=== PATIENT | male | born 1995 | race Caucasian/White ===

== ENCOUNTER 2019-09-22 19:45 | Inpatient (IN) | payer MEDICAID, SELFPAY ==
[~2019-09-22] VITALS: Ht 162.6 cm; Wt 67.6 kg
[2019-09-22 19:51] VITALS: BP 137/80
--- NOTE | 2019-09-22 20:05 | NUR ---
PT AMBULATED TO BED 6 WITH STEADY GAIT.
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
--- NOTE | 2019-09-22 20:10 | NUR ---
PT CURRENTLY NOT ON A HOLD BUT IS VOLUNTARILY CHECKING HIMSELF IN FOR SI. 1:1 SITTER AT BEDSIDE. SUICIDAL PRECAUTIONS IN PLACE.
--- NOTE | 2019-09-22 20:10 | NUR ---
REFER TO BEHAVIORAL HEALTH OBSERVATION RECORD FOR Q15MIN OBSERVATIONS OF PT.
--- NOTE | 2019-09-22 20:12 | NUR ---
PT PROVIDED UA VIA URINAL. UA GIVEN TO CLAY BURNER. CLAY BURNER AT BEDSIDE DRAWING LABS.
[2019-09-22 20:22] LABS: BASOPHILS # (AUTO) 0.1 K/uL (0.00-0.22); BASOPHILS % (AUTO) 1.1 % (0.0-2.0); EOSINOPHILS # (AUTO) 0.2 K/uL (0-0.4); EOSINOPHILS % (AUTO) 2.1 % (0.0-4.0); HEMATOCRIT 45.8 % (36-52); HEMOGLOBIN 15.8 g/dL (12.0-18.0); LYMPHOCYTES # (AUTO) 2.5 K/uL (2.0-11.5); LYMPHOCYTES % (AUTO) 34.2 % (20.5-51.1); MEAN CORPUSCULAR HEMOGLOBIN 32 pg (27-31); MEAN CORPUSCULAR HGB CONC 35 g/dL (33-37); MEAN CORPUSCULAR VOLUME 92.5 fL (80-94); MONOCYTES # (AUTO) 0.8 K/uL (0.8-1.0); MONOCYTES % (AUTO) 10.3 % (1.7-9.3); NEUTROPHILS # (AUTO) 3.9 K/uL (1.8-7.7); NEUTROPHILS % (AUTO) 52.3 % (42.2-75.2); PLATELET COUNT (AUTO) 194 K/uL (140-450); RED BLOOD CELL COUNT(AUTO) 4.95 MIL/uL (4.20-6.10); RED CELL DISTRIBUTION WIDTH 14.2 % (11.6-13.7); WHITE BLOOD COUNT (AUTO) 7.4 K/uL (4.8-10.8)
--- NOTE | 2019-09-22 20:24 | NUR ---
EKG BEING PERFORMED AT BEDSIDE.
[2019-09-22 20:48] LABS: ALBUMIN 4.4 g/dL (3.4-5.0); ANION GAP 13.8 (8-16); ASPARTATE AMINOTRANSFERASE 65 U/L (15-37); CARBON DIOXIDE 25.9 mmol/L (21-32); CHLORIDE 104 mmol/L (98-107); CREATININE 0.8 mg/dL (0.6-1.3); GFR ARICAN-AMERICAN 151 mL/min (>90); GLUCOSE 91 mg/dL (74-106); POTASSIUM 3.7 mmol/L (3.5-5.1); SODIUM SERUM 140 mmol/L (136-145); UREA NITROGEN, BLOOD 7 mg/dL (7-18)
[2019-09-22 20:52] LABS: ACETAMINOPHEN < 0.5 ug/ml (10-30); SALICYLATE < 2.8 mg/dL (2.8-20.0)
--- NOTE | 2019-09-22 21:00 | NUR ---
TELEPSYCH REQUEST INITIATED - CONNECT ID [id number]
[2019-09-22 21:02] LABS: BARBITURATE, URINE NEGATIVE ng/ml (NEG <=200); BENZODIAZEPINE, URINE NEGATIVE ng/mL (NEG <=200); CANNABINOID, URINE POSITIVE ng/mL (NEG <=50); COCAINE, URINE NEGATIVE ng/mL (NEG <=300); OPIATE, URINE NEGATIVE ng/mL (NEG <=2000); PHENCYCLIDINE SCREEN,URINE NEGATIVE ng/mL (NEG <=25)
--- NOTE | 2019-09-22 21:03 | NUR ---
TELEPSYCH SET UP AT PT BEDSIDE.
--- NOTE | 2019-09-22 21:03 | NUR ---
CALLED [place] [employer] AND SPOKE TO ANGELO. PD WILL COME TO EVALUATE PT TO BE PLACED ON A HOLD AT SOON POSSIBLE.
--- NOTE | 2019-09-22 21:17 | NUR ---
PT RESTING IN BED EYES CLOSED. RESPIRATIONS ARE EVEN AND UNLABORED SKIN IS WARM AND DRY TO TOUCH.
--- NOTE | 2019-09-22 21:53 | NUR ---
[place] [employer] AT BEDSIDE.
--- NOTE | 2019-09-22 22:12 | NUR ---
[place] PD at the pt bedside and pt was place on 5150 hold. PORTER reilly.
--- NOTE | 2019-09-22 23:15 | NUR ---
PTS VSS. PT ASLEEP IN BED, RR EVEN AND UNLABORED.
--- NOTE | 2019-09-22 23:32 | NUR ---
[facility] s/w Nii, ruth beds for tonight. Call in the AM for discharges [facility], no answer. Will call again. No voicemail box
--- NOTE | 2019-09-23 00:17 | NUR ---
PT RESTING IN BED EYES CLOSED. RESPONSIVE TO VERBAL STIMULI. RESPIRATIONS ARE EVEN AND UNLABORED. SKIN IS WARM AND DRY TO TOUCH. 1:[address] BEDSIDE. SI PRECAUTIONS ARE IN PLACE.
--- NOTE | 2019-09-23 00:30 | NUR ---
PT ASLEEP ON BED AND AROUSABL WITH A SITTER AT THE BEDSIDE. PT PERSONAL BELONING HANDLED TO THE HOUSE SECURITY.
--- NOTE | 2019-09-23 01:21 | NUR ---
PT GIVEN BLANKET AND ON CONTINIOUS 1;1 WATCH WITH THE SITTER AT THE BEDSIDE. PT IS CALM AND COOPERATIVE.
--- NOTE | 2019-09-23 02:19 | NUR ---
PT NO COMPLAINS NOTED. PT FOR POSSIBLE ADMISSION TO MED-SURG PER DR SWIFT
[2019-09-23] MEDS ORDERED: ACETAMINOPHEN 325 MG TAB PO PRN (02:35)
[2019-09-23] MEDS ORDERED: ONDANSETRON 4 MG/2 ML VIAL IVP PRN (02:35)
--- NOTE | 2019-09-23 02:44 | NUR ---
XRAY AT BEDSIDE.
--- NOTE | 2019-09-23 02:58 | NUR ---
Called the following facilities: [facility], still no answer [facility] s/w Z[facility] no beds. At full capacity [facility] s/w [facility], no beds. On saturation [facility], no beds, packet faxed for wait list [facility], no beds, packet faxed for wait list
[2019-09-23 03:04] LABS: PROTHROMBIN TIME 9.4 secs (10.8-13.4)
[2019-09-23 03:05] LABS: CHOL/HDL RATIO 1.9 (1-4.5); MAGNESIUM 1.9 mg/dL (1.8-2.4); PHOSPHORUS 4.4 mg/dL (2.5-4.9); THYROID STIMULATING HORMONE 1.34 uIU/mL (0.34-3.74)
--- NOTE | 2019-09-23 03:09 | NUR ---
IV PLACED IN L HAND 20 G. IV PATENT. NO PAIN , REDNESS, OR SWELLING NOTED.
--- NOTE | 2019-09-23 03:22 | NUR ---
[facility] no beds [facility] no beds, call back after 11am [facility] no beds
--- NOTE | 2019-09-23 03:27 | NUR ---
AT BEDSIDE TALKING WITH PT
--- NOTE | 2019-09-23 03:50 | NUR ---
PT TAKEN TO MS VIA W/C. PT ABLE TO AMBULATE TO W/C WITH STEADY GAIT. CORRECTION OFFICER HEAD ASSISTING RN.
--- NOTE | 2019-09-23 03:52 | NUR ---
Patient will be admitted to care of . Admited to [facility]. Will go to room 109B. Belongings list completed AND PT BELONGINGS WITH SECURITY. Report GIVEN TO PORTER SALAZAR, WHO ASSUMED CARE OF PT AT THIS TIME.
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
[2019-09-23] MEDS ORDERED: HALOPERIDOL IM 5 MG/ML VIAL IM PRN (03:55)
[2019-09-23] MEDS ORDERED: LORazepam 2 MG/ML VIAL IM/IVP PRN (03:55)
[2019-09-23 04:00] VITALS: BP 120/92
--- NOTE | 2019-09-23 04:10 | NUR ---
PT SITTING COMFORTABLY IN BED EATING SANDWICH. 1:1 SITTER. WILL CONTINUE TO MONITOR.
--- NOTE | 2019-09-23 04:20 | NUR ---
[facility] s/w Nii no beds, on saturation [facility] s/w Zeb no beds
--- NOTE | 2019-09-23 06:00 | NUR ---
PATIENT LAYING COMFORTABLY IN BED WITH EYES CLOSED. CHEST RISE AND FALL NOTED. NO S/S OF DISTRESS. 1:1 SITTER. WILL CONTINUE TO MONITOR.
--- NOTE | 2019-09-23 07:10 | NUR ---
GAVE BEDSIDE REPORT TO DAY RN. PT ENDORSED IN STABLE CONDITION.
--- NOTE | 2019-09-23 07:11 | NUR ---
REPORT GIVEN FROM NIGHT NURSE. PLANS OF CARE DISCUSSED. PATIENT ASLEEP, RESPIRATION EVEN AND UNLABORED. EASILY AROUSABLE BY NAME OR TOUCH. PATIENT ON 1 TO 1 SITTER.
[2019-09-23 07:14] LABS: APPEARANCE,URINE SL CLOUDY (CLEAR); BILIRUBIN,URINE 1+ (NEGATIVE); BLOOD, URINE NEGATIVE (NEGATIVE); COLOR,URINE YELLOW (YELLOW); LEUKOCYTE ESTERASE ,URINE NEGATIVE (NEGATIVE); NITRITE, URINE NEGATIVE (NEGATIVE); PH,URINE 6.5 (5.0-9.0); UGLUCOSE NEGATIVE (NEGATIVE)
--- NOTE | 2019-09-23 07:18 | NUR ---
Received report from manufacturing shift supervisor. There are no beds at this time. [facility] still working on placement.
--- NOTE | 2019-09-23 09:04 | NUR ---
PATIENT HAS BEEN SCREENED AND CATEGORIZED LOW NUTRITION RISK. PATIENT WILL BE SEEN WITHIN 7 DAYS OF ADMISSION. 09/29/[address]
[2019-09-23] MEDS: risperiDONE 1 MG TAB PO SCH ×2 (09:07→20:24)
[2019-09-23] MEDS: diphenhydrAMINE 50 MG CAP PO SCH ×2 (09:07→20:24)
--- NOTE | 2019-09-23 09:15 | NUR ---
PATIENT ASLEEP, ABLE TO WAKE BY NAME. 1:1 SITTER AT BEDSIDE. PATIENT DENIES HEARING VOICES AND SUICIDAL THOUGHTS AT THIS TIME.
--- NOTE | 2019-09-23 10:53 | NUR ---
ALGOLOGIST NOTE: Basic Screen: Yes High Risk DC Screen [place]: CESILIA Dwyer Tel: N/A Relationship: GRANDFATHER Pre-Admission Living Arrangements: Other Prior ADL Independent Current Home Health Name/Tel: N/A Current DME/02 Name/Tel: N/A Current Hospice Name/Tel: N/A Current Dialysis Name/Tel: N/A Healthcare Decision Maker: Patient Advance Directive No Physician Orders for Life Sustaining Treatment Form No Patient/Family Have Educational Needs No Information Taught: Community Resources Person Taught: Patient Teaching Tools: Community Resources Computer Generated Print Verbal Factors Affecting Learning: None Participation Level: Active Evaluation: Verbalizes Understanding Needs Additional Education: No Discipline: Case Mgt/Social Svcs Tentative Discharge Plan/Destination: Other Other: PSYCHIATRIC FACILITY Will require assistance post discharge: No Referred to Statistical Reporting Analyst: No Tentative Discharge Plan Summary: PATIENT IS A 24-YEAR-OLD MALE ADMITTED FOR 5150. PATIENT HAS PMHX OF BIPOLAR DISORDER, SCHIZOPHRENIA, AND MEDICATION-NONCOMPLIANCE. PATIENT REPORTED BEING HOMELESS. SW MET WITH PATIENT AT BEDSIDE TO VERIFY DEMOGRAPHICS. PATIENT'S AFFECT WAS GUARDED AND RESISTANT TO SPEAK. PATIENT STATED HE WAS HOMELESS FOR 7 YEARS AND DENIES CURRENT S/I AND H/I. PATIENT STATED THAT HE WAS EXPERIENCING S/I AND H/I PRIOR TO HOSPITALIZATION. PATIENT STATED HE SOMETIMES HAS COMMANDING AUDITORY HALLUCINATIONS BUT IS NOT CURRENTLY EXPERIENCING THEM. PATIENT STATED THAT HE DOES NOT EXPERIENCE VISUAL HALLUCINATIONS. PATIENT STATED THAT HE DRINKS AND SMOKES MARIJUANA BUT REFUSED TO STATE FREQUENCY. PATIENT REFUSED MENTAL HEALTH RESOURCES BUT ACCEPTED HOMELESS RESOURCES AND SUBSTANCE ABUSE RESOURCES. PATIENT REPORTED THAT HE IS SUPPOSED TO TAKE RESPIRADAL, REMERON, AND BENEDRYL BUT DOES NOT. [facility] WAS SENT CLINICAL PACKET 09/23/2019. TENTATIVE DISCHARGE PLAN IS FOR PATIENT TO BE DISCHARGED TO PSYCHIATRIC FACILITY PENDING PSYCHIATRIC CONSULT. SW WILL REMAIN AVAILABLE IF ISSUES ARISE. Signature: CALLY LOUIS Date: September 23, 2019 Time: 10:52
--- NOTE | 2019-09-23 11:02 | NUR ---
PATIENT IN BED, AWAKE, RESTING QUIETLY. 1 TO 1 SITTER AT BEDSIDE FOR CONTINUOUS MONITORING.
--- NOTE | 2019-09-23 12:00 | NUR ---
DISCHARGE PLANNING: THIS IS A 24 Y/O MALE PATIENT FROM HOME, WHO CAME IN DUE TO HEARING VOICES X2DAYS. PAST MEDICAL HISTORY INCLUDE BIPOLAR, SCHIZOPHRENIA AND MEDICAL NON COMPLIANCE. INITIAL DIAGNOSIS OF 5150 HOLD. CURRENT LABS WNL. UDS SHOWED (+) FOR CANNABINOIDS AND SERUM ALCOHOL 38. PSYCHE CONSULT IN PLACE. DC PLAN PENDING ON PSYCHE'S RECOMMENDATIONS. Addendum: 09/23/19 at 1552 by Brianna Garcia CM SPOKE TO PORTER BEAUCHAMP ABOUT COVID TESTING FOR PATIENT, SHE STATED THAT SHE ASKED DR. CAZARES TO PLACE THE ORDER. I THEN SPOKE TO DR. CAZARES ABOUT TO FOLLOW UP HE SAID THAT HE WILL PERFORM THE COVID TESTING ON PATIENT.
--- NOTE | 2019-09-23 12:56 | NUR ---
Received call from [facility]. They are willing to accept the patient but they need a COVID test first. I have notified the bedside nurse as well as left a voicemail for the case worker Shameka.
--- NOTE | 2019-09-23 13:30 | NUR ---
DR. ROSEN MADE AWARE IN REGARDS TO RECEIVING PHONE CALL FROM [facility] STATING THAT [facility] IS WILLING TO ACCEPT PATIENT IF PATIENT IS TESTED FOR COVID.
--- NOTE | 2019-09-23 13:59 | NUR ---
PATIENT IN BED, ASLEEP, EASILY AROUSABLE BY NAME, RESTING QUIETLY. 1 TO 1 SITTER AT BEDSIDE FOR CONTINUOUS MONITORING.
[2019-09-23 16:00] VITALS: BP 122/63
[2019-09-23] MEDS ORDERED: LORazepam 2 MG/ML VIAL IVP PRN (16:10)
[2019-09-23] MEDS: MULTIVITAMIN-12 10 ML, THIAMINE 100 MG, FOLIC ACID 1 MG, MAGNESIUM SULFATE 50% 2,000 MG... IV SCH ×5 (16:53)
--- NOTE | 2019-09-23 17:00 | NUR ---
PATIENT AWAKE AND VERBALLY RESPONSIVE. DENIES ANY SI OR AH AT THIS TIME. 1 TO 1 SITTER AT BEDSIDE.
--- NOTE | 2019-09-23 18:55 | NUR ---
PATIENT IN STABLE CONDITION. 1 TO 1 SITTER AT BEDSIDE. WILL ENDORSE TO NIGHT NURSE FOR CONTINUITY OF CARE.
--- NOTE | 2019-09-23 19:24 | NUR ---
RECEIVED BEDSIDE REPORT FROM DAY SHIFT NURSEROWDY. PT HAVE NO S/S OF SOB. BREATHING EVEN AND UNLABORED WITH ROOM AIR. IV SITE ON LH 20G. PATENT, INTACT AND ASYMPTOMATIC. SKIN INTACT, WARM AND DRY TO TOUCH. BED IN LOW POSITION. 1:1 SITTER.
--- NOTE | 2019-09-23 20:26 | NUR ---
GIVEN BENADRYL, REMERON, AND RISPERDAL MD ORDERED. PT TOLERATED WELL.
[2019-09-23] MEDS ORDERED: MIRTAZAPINE 15 MG TAB PO SCH (21:00)
--- NOTE | 2019-09-23 22:26 | NUR ---
IV PUMP BEEPING FOR PRESSURE. FLUSHED IV SITE. PT SLEEPING IN BED COMFORTABLY.
[2019-09-24] VITALS: BP 120/61
--- NOTE | 2019-09-24 00:01 | NUR ---
VS CHECKED, WITHIN PT'S BASELINE. WILL CONTINUE TO MONITOR.
--- NOTE | 2019-09-24 02:33 | NUR ---
Monitoring notes and aware awaiting for laboratory test Covid 19, that is pending
--- NOTE | 2019-09-24 02:37 | NUR ---
PT SLEEPING IN BED COMFORTABLY. NO ACUTE DISTRESS NOTED.
--- NOTE | 2019-09-24 04:12 | NUR ---
PT SLEEPING IN BED COMFORTABLY. NO ACUTE DISTRESS NOTED.
--- NOTE | 2019-09-24 06:21 | NUR ---
PT SLEEPING IN BED COMFORTABLY. NO ACUTE DISTRESS NOTED.
--- NOTE | 2019-09-24 06:55 | NUR ---
PT IN STABLE CONDITION. WILL ENDORSE PT TO DAY SHIFT NURSE FOR CONTINUOUS CARE.
--- NOTE | 2019-09-24 07:00 | NUR ---
RECEIVED REPORT FROM HISTORICAL INTERPRETER NURSE. PT IS CURRENTLY ASLEEP, ALERT AND LAYING IN BED WITH NO SIGNS OF DISTRESS NOTED, SITTER IS AT BEDSIDE. SKIN IS INTACT WITH IV ASYMPTOMATIC, PATENT, AND SALINE LOCKED. RESPIRATIONS ARE EVEN AND UNLABORED ON ROOM AIR WITH VISIBLE CHEST RISE AND FALL. PT DOES NOT COMPLAIN OF PAIN AT THIS TIME. VITAL SIGNS ARE STABLE. BED IS IN LOW POSITION, SAFETY MEASURES IN PLACE, CALL LIGHT WITHIN REACH AND WILL CONTINUE TO MONITOR.
--- NOTE | 2019-09-24 07:51 | NUR ---
Received report from maintenance technician 2nd shift. [facility] still working on placement.
[2019-09-24 08:03] LABS: BASOPHILS % (AUTO) 0.9 % (0.0-2.0); EOSINOPHILS # (AUTO) 0.2 K/uL (0-0.4); EOSINOPHILS % (AUTO) 4.2 % (0.0-4.0); HEMATOCRIT 45.5 % (36-52); HEMOGLOBIN 15.1 g/dL (12.0-18.0); LYMPHOCYTES % (AUTO) 35.3 % (20.5-51.1); MEAN CORPUSCULAR HEMOGLOBIN 32 pg (27-31); MEAN CORPUSCULAR HGB CONC 33 g/dL (33-37); MEAN CORPUSCULAR VOLUME 95.4 fL (80-94); MONOCYTES # (AUTO) 0.8 K/uL (0.8-1.0); MONOCYTES % (AUTO) 13.4 % (1.7-9.3); NEUTROPHILS # (AUTO) 2.7 K/uL (1.8-7.7); NEUTROPHILS % (AUTO) 46.2 % (42.2-75.2); PLATELET COUNT (AUTO) 174 K/uL (140-450); RED BLOOD CELL COUNT(AUTO) 4.77 MIL/uL (4.20-6.10); RED CELL DISTRIBUTION WIDTH 14.4 % (11.6-13.7); WHITE BLOOD COUNT (AUTO) 5.8 K/uL (4.8-10.8)
[2019-09-24 08:20] LABS: ANION GAP 10.6 (8-16); CARBON DIOXIDE 30.3 mmol/L (21-32); CREATININE 0.8 mg/dL (0.6-1.3); POTASSIUM 3.9 mmol/L (3.5-5.1)
[2019-09-24 08:21] LABS: MAGNESIUM 1.9 mg/dL (1.8-2.4); PHOSPHORUS 3.5 mg/dL (2.5-4.9)
[2019-09-24] MEDS: diphenhydrAMINE 50 MG CAP PO SCH (09:29)
[2019-09-24] MEDS: risperiDONE 1 MG TAB PO SCH (09:29)
--- NOTE | 2019-09-24 09:37 | NUR ---
ADMINISTERED MEDICATIONS PER ORDER AND TOLERATED WELL. PT DOES NOT COMPLAIN OF PAIN AT THIS TIME. PT DOES WANT TO TAKE A SHOWER BEFORE RECEIVING BANANA BAG. WILL FOLLOW UP FOR ORDER FROM PHYSICIAN. SAFETY MEASURES IN PLACE, CALL LIGHT WITHIN REACH AND WILL CONTINUE TO MONITOR.
[2019-09-24] MEDS: MULTIVITAMIN-12 10 ML, THIAMINE 100 MG, FOLIC ACID 1 MG, MAGNESIUM SULFATE 50% 2,000 MG... IV SCH ×5 (11:45)
--- NOTE | 2019-09-24 11:50 | NUR ---
IV IN LEFT HAND WAS REMOVED AND A NEW 22G IV WAS INSERTED INTO FOREARM. PT DOES NOT COMPLAIN OF PAIN AT THIS TIME. PT NO LONGER WANTS TO SHOWER AND IS OKAY WITH RECEIVING IVF. SAFETY MEASURES IN PLACE AND WILL CONTINUE TO MONITOR.
--- NOTE | 2019-09-24 13:50 | NUR ---
PT IS CURRENTLY SLEEPING WITH NO SIGNS OF DISTRESS NOTED. SAFETY MEASURES ARE IN PLACE, SITTER IS AT BEDSIDE AND BED IS IN LOW POSITION. WILL CONTINUE TO MONITOR.
--- NOTE | 2019-09-24 14:57 | NUR ---
DANIEL FROM [facility] SAID PATIENT HAS BED BUT NEEDS THE RESULT OF COVID FIRST.
--- NOTE | 2019-09-24 15:59 | NUR ---
PT IS CURRENTLY AWAKE AND IN BED WITH NO SIGNS OF DISTRESS. PT STATES THAT HE IS HUNGRY AND WANTS TO HAVE A SANDWICH. NO OTHER COMPLAINTS OR REQUESTS AT THIS TIME. SAFETY MEASURES IN PLACE AND WILL CONTINUE TO MONITOR.
[2019-09-24 16:00] VITALS: BP 114/69
--- NOTE | 2019-09-24 16:25 | NUR ---
Packet faxed to: [facility]
--- NOTE | 2019-09-24 17:50 | NUR ---
PT IS CURRENTLY AWAKE AND WALKING AROUND ROOM WHISTLING. PT SHOWS NO SIGNS OF DISTRESS OR COMPLAINTS OF PAIN. SAFETY MEASURES IN PLACE AND WILL CONTINUE TO MONITOR.
--- NOTE | 2019-09-24 18:37 | NUR ---
PT IS CURRENTLY ALERT,AWAKE AND LAYING IN BED WITH NO SIGNS OF DISTRESS NOTED OR COMPLAINTS OF PAIN. SAFETY MEASURES IN PLACE AND SITTER AT BEDSIDE. PATIENT IS IN STABLE CONDITION, WILL ENDORSE TO SHEET METAL PRODUCTION WORKER NURSE FOR CONTINUITY OF CARE.
[2019-09-24] MEDS ORDERED: MIRT15TA4 PO (18:43)
[2019-09-24] MEDS ORDERED: BEN50 PO (18:43)
[2019-09-24] MEDS ORDERED: RIS1 PO (18:43)
[2019-09-24 18:53] VITALS: BP 114/69
--- NOTE | 2019-09-24 19:05 | NUR ---
RECEIVED ENDORSEMENT FROM AM SHIFT RN THAT PATIENT HAS A D/C ORDER. PATIENT IS NOT IN ANY ACUTE DISTRESS. NO SOB NOTED. DENIES PAIN. WILL CONTINUE TO MONITOR AND PREPARE D/C INSTRUCTIONS.
--- NOTE | 2019-09-24 20:15 | NUR ---
DISCHARGED INSTRUCTIONS EXPLAINED AND GIVEN TO PATIENT. PERSONAL BELONGINGS RETURNED TO PATIENT. SIGNED D/C FORMS. PATIENT VERBALIZED UNDERSTANDING. PATIENT IS IN STABLE CONDITION. NO SOB. DENIES PAIN. WILL ARRANGE TRANSPORT.
--- NOTE | 2019-09-24 20:45 | NUR ---
ACCOMPANIED PATIENT IN FRONT OF THE HOSPITAL TO THE VAN/CAR PASS ARRANGED BY HOSPITAL. PATIENT IS AMBULATORY. PATIENT IS THANKFUL. DISCHARGED AT THIS TIME.
== END 2019-09-24 20:45 | disposition home or self-care (01) | DRG 750 ==
LOC: MED 19:45 → EEVIPCON 09-23 02:34 → MTU 09-23 02:34
PROVIDERS: ADMIT General Practice; ATTEND General Practice
DX: F25.0 Schizoaffective disorder, bipolar type (principal); R74.0 Nonspecific elevation of levels of transaminase and lactic acid dehydrogenase [LDH]; F10.239 Alcohol dependence with withdrawal, unspecified; Z03.818 Encounter for observation for suspected exposure to other biological agents ruled out; F12.10 Cannabis abuse, uncomplicated
CPT/HCPCS: 36415; 71045; 76705; 80048; 80053; 80305; 81003; 83036; 83690; 83735; 83880; 84100; 84443; 84484; 85025; 85610; 85730; 87081; 99285; A9153; G0480; G0482; J3411; J3475; J3490; Q0092; Q0163